=== PATIENT | female | born 1990 | race Caucasian/White ===

== ENCOUNTER 2018-09-17 11:24 | Day surgery (SDC) | payer OTHER ==
[2018-09-17] MEDS ORDERED: NALOXONE HCL 0.4 MG/ML INJ IVP PRN (12:55)
[2018-09-17] MEDS ORDERED: fentaNYL 100 MCG/2 ML INJ IVP PRN (12:55)
[2018-09-17] MEDS ORDERED: MEPERIDINE 25 MG/ML SYR IVP PRN (12:55)
[2018-09-17] MEDS ORDERED: FLUMAZENIL 0.5 MG/5 ML MDV IVP PRN (12:55)
[2018-09-17] MEDS ORDERED: MIDAZOLAM 2 MG/2 ML VIAL IVP PRN (12:55)
[2018-09-17] MEDS ORDERED: NS 1,000 ML IV SCH (13:00)
--- NOTE | 2018-09-17 13:22 | PDPROPOC ---
Sedation Plan of Care Sedation Plan of Care: vital signs stable, mental status noted, patient educated of risks, benefits, alternatives, patient can tolerate sedation ASA Classification: ASA 1 Planned drugs: fentanyl, midazolam Mallampati Score: Class 1 Mallampati Reference Image: Patient passed 3-3-2 rule?: Yes
--- NOTE | 2018-09-17 13:22 | PDHPUP ---
History & Physical Update H&P update statement: This history and physical update is based on an assessment of the patient which was completed after admission or registration (within 24 hours), but prior to the surgery/procedure. H&P update: H&P reviewed & patient examined, no change in patient's condition since H&P completed
[2018-09-17 14:00] VITALS: BP 103/63
[2018-09-17] MEDS ORDERED: OXYCODONE/APAP 5/325 TAB PO PRN (14:11)
[2018-09-17] MEDS ORDERED: ONDANSETRON 4 MG/2 ML VIAL IVP PRN (14:11)
--- NOTE | 2018-09-17 14:13 | PDCONSULT ---
Lead Advisor Note: NEUROENDOVASCULAR resting in recovery [id number], speech clear and fluent, CNII-XII normal full strength, sensation normal groin c/d/i, distal pulses palpable s/p diagnostic angiogram, right basal ganglia AVM - bedrest x 3 hours, then d/c home - clinic will call for followup Pahm
== END 2018-09-17 17:28 | disposition home or self-care (01) ==
LOC: FIMAGING 11:24
PROVIDERS: ATTEND Neurological Surgery
PROC: B3181ZZ Fluoroscopy of Bilateral Internal Carotid Arteries using Low Osmolar Contrast (ICD-10-PCS; principal; 2018-09-17)
PROC: B31G1ZZ Fluoroscopy of Bilateral Vertebral Arteries using Low Osmolar Contrast (ICD-10-PCS; principal; 2018-09-17)
DX: Q28.2 Arteriovenous malformation of cerebral vessels (principal); F17.210 Nicotine dependence, cigarettes, uncomplicated; G43.C0 Periodic headache syndromes in child or adult, not intractable
CPT/HCPCS: 36224; 36225; 99152; C1769; J2250; J2310; J3010